=== PATIENT | male | born 1960 | race Caucasian/White ===

== ENCOUNTER 2025-04-01 15:01 | Outpatient (CLI) | payer BC | END 2025-04-01 15:02 | disposition home or self-care (01) | LOC: BICMRI 15:01 | PROVIDERS: ATTEND Family Medicine | DX: M25.561 Pain in right knee (principal); S83.231A Complex tear of medial meniscus, current injury, right knee, initial encounter; S83.241A Other tear of medial meniscus, current injury, right knee, initial encounter; M94.8X6 Other specified disorders of cartilage, lower leg ==

== ENCOUNTER 2025-05-13 14:52 | Outpatient (CLI) | payer BC | END 2025-05-13 14:53 | disposition home or self-care (01) | LOC: ULT 14:52 | PROVIDERS: ATTEND Family Medicine | DX: I83.813 Varicose veins of bilateral lower extremities with pain (principal); I48.0 Paroxysmal atrial fibrillation; E11.9 Type 2 diabetes mellitus without complications; R60.0 Localized edema | CPT/HCPCS: 93926 ==